=== PATIENT | male | born 1980 | race Caucasian/White ===

== ENCOUNTER 2020-05-30 13:59 | Emergency (ER) | payer OTHER ==
[~2020-05-30] VITALS: Ht 172.7 cm; Wt 77.1 kg
[2020-05-30] MEDS ORDERED: AMBIEN10 MG (14:21)
[2020-05-30] MEDS ORDERED: PERCOCET 7.5-31 EACH (14:21)
[2020-05-30] MEDS ORDERED: ZESTRIL40 M1 (14:22)
[2020-05-30] MEDS ORDERED: HYDROCHLOROTHIA25 MG (14:23)
[2020-05-30] MEDS ORDERED: ANALPRAM HC 2.530 GM RECTAL (16:13)
== END 2020-05-30 16:29 | disposition home or self-care (01) ==
LOC: ER 13:59
DX: K64.4 Residual hemorrhoidal skin tags (principal)